=== PATIENT | female | born 1985 ===

== ENCOUNTER 2019-12-11 19:42 | Emergency (ER) | payer OTHER ==
[~2019-12-11] VITALS: Ht 165.1 cm; Wt 79.4 kg
[2019-12-11] MEDS ORDERED: MELO-107 PO (19:57)
[2019-12-11] MEDS ORDERED: LORA-114 PO (19:57)
--- NOTE | 2019-12-11 20:01 | NUR ---
Dr. Flor at bedside for MSE.
[2019-12-11] MEDS ORDERED: NEOMY/BACITRA/POLYMYXIN B OINT UD PACKET TP ONE ×2 (20:07→20:15)
[2019-12-11] MEDS ORDERED: TDAP DIPH,PERTUSS,TET VAC/PF 0.5 ML DISP.SYRIN IM ONE ×2 (20:08→20:15)
--- NOTE | 2019-12-11 20:15 | NUR ---
Patient discharged to home in stable condition. Written and verbal after care instructions given. Patient verbalizes understanding of instructions. Stressed follow up or return to ER for worsening s/s. Patient ambulated out of ER with steady gait, no acute signs of distress, VSS, all belongings taken.
[2019-12-11 20:16] VITALS: BP 129/92
== END 2019-12-11 20:16 | disposition home or self-care (01) ==
LOC: ER 20:01
DX: S61.230A Puncture wound without foreign body of right index finger without damage to nail, initial encounter (principal); W55.01XA Bitten by cat, initial encounter; Y92.89 Other specified places as the place of occurrence of the external cause
CPT/HCPCS: 90715; A4663